=== PATIENT | female | born 1970 | race Native Hawaiian/Other Pacific Islander ===

== ENCOUNTER 2020-10-08 04:26 | Emergency (ER) | payer BC ==
[2020-10-08 04:33] VITALS: BP 138/67
--- NOTE | 2020-10-08 04:47 | Emergency Department Report ---
Chief Complaint: Upper Respiratory Infection Stated Complaint: CONGESTION Time Seen by Provider: 10/08/20 04:38 - HPI History of Present Illness: Patient is a 50-year-old female presents emergency room complaints of nasal congestion that began today. She has associated rhinorrhea. She denies any fever, nausea, vomiting, diarrhea, cough, shortness of breath, chest pain. No past medical history. No allergies medications. No sick contacts or recent travel. Vitals are normal On exam: Non toxic appearing, no acute distress atraumatic, normocephalic normal appearance of the eyes, PERRL, EOMI, no periorbital edema or ecchymosis moist mucus membranes, normal oropharynx, normal TMs and canals bilaterally, pale boggy turbinates with mild edema, no complete obstruction, clear rhinorrhea bilaterally, no purulent drainage, no erythema of the nasal turbinates, no sinus tenderness palpation regular heart rate and rhythm, no gallops, no rubs, no murmurs breath sounds are clear bilaterally, no w/r/r, no stridor, no respiratory distress, no accessory muscle use A&O x4, no focal neuro deficit skin is warm, dry, intact Examination appears consistent with allergic rhinitis Discussed supportive care and symptomatic treatment with patient Discussed primary care follow-up Discussed return precautions Medical screening examination performed and there is no threat to life or limb at this time - Exam Vital Signs: Vital Signs 10/08/20 04:31 Temperature 97.8 F Pulse Rate 65 Respiratory 18 Rate Blood Pressure 138/67 O2 Sat by Pulse 100 Oximetry MSE screening note: Focused history and physical exam performed. Due to findings the following was ordered: ED Disposition for MSE Clinical Impression: Nasal congestion, Rhinorrhea Allergic rhinitis Qualifiers: Allergic rhinitis trigger: unspecified Allergic rhinitis seasonality: unspecified Qualified Code(s): J30.9 - Allergic rhinitis, unspecified Disposition: Z- MED SCREENING EXAM-LEFT Is pt being admited?: No Does the pt Need Aspirin: No Condition: Stable Instructions: Allergic Rhinitis, Adult, [id number] Additional Instructions: Please use Flonase nasal spray. Please use an allergy medication over the counter such as Claritin, Zyrtec, or Xyzal. Please use a nasal rinse. May use Vicks vapor rub. May use a humidifier. Follow-up with a primary care doctor for reexamination. Return to emergency room for any new or worsening symptoms. Referrals: PRIMARY CAREMD [Primary Care Provider] - 2-3 Days YAYA WAKEFIELD MD [Staff Physician] - 2-3 Days Time of Disposition: 04:46 Print Language: LATVIAN
== END 2020-10-08 04:50 | disposition left against medical advice (07) ==
LOC: ED 04:26
DX: J30.9 Allergic rhinitis, unspecified (principal); Z53.21 Procedure and treatment not carried out due to patient leaving prior to being seen by health care provider

== ENCOUNTER 2022-03-18 13:43 | Emergency (ER) | payer BC, OTHER ==
[2022-03-18 16:01] VITALS: BP 126/61
[2022-03-18 16:50] LABS: Hematocrit 40.4 % (30.3-42.9); Hemoglobin 13.5 gm/dl (10.1-14.3); Mean Corpuscular HGB Conc 34 % (30-34); Mean Corpuscular Volume 88 fl (79-97); Platelet Count 233 K/mm3 (140-440); Red Blood Count 4.58 M/mm3 (3.65-5.03); Red Cell Distribution Width 13.5 % (13.2-15.2)
[2022-03-18 17:03] LABS: Alanine Aminotransferase 17 units/L (7-56); Albumin 4.7 g/dL (3.9-5); Blood Urea Nitrogen 13 mg/dL (7-17); Calcium 9.4 mg/dL (8.4-10.2); Hemolysis Index 36
[2022-03-18 17:08] LABS: BUN/Creatinine Ratio 26
[2022-03-18 19:44] LABS: Color,Urine Straw (Yellow)
[2022-03-18 19:45] LABS: Bacteria,Urine 1+ /HPF (Negative); Mucus,Urine FEW /HPF
== END 2022-03-18 19:00 | disposition left against medical advice (07) ==
LOC: ED 13:43
DX: R10.9 Unspecified abdominal pain (principal); Z53.21 Procedure and treatment not carried out due to patient leaving prior to being seen by health care provider
CPT/HCPCS: 36415; 80053; 81001; 83690; 84703; 85027; 87086